=== PATIENT | female | born 1985 | race Caucasian/White ===

== ENCOUNTER 2020-09-19 12:02 | Inpatient (IN) ==
[2020-09-19] MEDS ORDERED: miSOPROStoL 50 MCG TAB PO ONE (13:01)
[2020-09-19] MEDS ORDERED: OXYTOCIN 30 UNITS/500 ML BAG IV PRN (13:01)
[2020-09-19 13:20] LABS: Hematocrit (blood only) 34.8 % (37-47); Hemoglobin 12.1 g/dL (12.0-16.0); Mean Corpuscular Hemoglobin 32.4 pg (25-34); Mean Corpuscular Hgb Conc 34.8 g/dL (32-36); Mean Platelet Volume 10.6 fL (7.4-10.4); Platelet Count 214 K/uL (130-400); RDW Coefficient of Variation 13.9 % (11.5-14.5); Red Blood Count 3.74 M/uL (4.2-5.4); White Blood Count 10.33 K/uL (4.8-10.8)
--- NOTE | 2020-09-19 13:23 | History & Physical Report ---
Date of Service September 19, 2020 Assessment & Plan (1) Post-dates : 35-year-old -0-0-2 at 40 weeks and 6 days of gestation, scheduled induction of labor for postdates, Vital signs stable afebrile, heart rate reassuring, Cervix unfavorable, Plan to admit, monitor, labs and cervical ripening Patient desires to ambulate during induction process Discussed what to expect from induction All questions were answered. Admission and Anticipated Discharge Date Admission Date: September 19, 2020 History of Present Illness Primary Care Provider: NO PCP Patient is a 35-year-old -0-0-2 at 40 weeks and 6 days of gestation who is here today for scheduled induction of labor for postdates. She has no complaints. She denies contractions, leakage of fluid, vaginal bleeding. She reports good movements. Her has been uncomplicated except GBS positive and AMA. She declined genetic testing. Allergies Allergy/AdvReac Type Severity Reaction Status Date / Time No Known Allergies Allergy Unverified 03/06/18 08:11 Home Medications Medication Instructions Recorded Confirmed Type vit-iron fum-folic ac 1 tab PO DAILY 03/06/18 03/06/18 History [ Vitamin] ibuprofen 600 mg PO Q6H PRN #30 tab 03/08/18 Rx Patient History Medical History (Updated 09/19/20 @ 13:21 by Deepti Brandt MD) and not yet delivered in third trimester Surgical History History of ear surgery History of placement of ear tubes [place] teeth extracted Social History Smoking Status: Never smoker Hx Alcohol Use: No Hx Substance Use: No Preferred Language: Greenlandic Communication Ability: Effective Beliefs That Will Affect Care: None marital status: Current Living Situation: Spouse and Family Feels Safe at Home: Yes Assistive Devices: None OB History 2 FT [employer] History Denies any history of STD weeks including chlamydia, gonorrhea, herpes. Review of Systems All systems reviewed & are unremarkable except as noted in HPI & below Physical Exam Constitutional: WD/WN, vitals as above well developed and well nourished Comfortable laying in bed, not in acute distress Gastrointestinal (Abdomen): normal bowel sounds, soft, nontender, no hepatosplenomegaly (Gravid, Ant 7 to 8 pounds) Genitourinary: + external erythema (Vulvar erythema) OB Exam Abdomen: + vertex Manual OB Exam: + cervical dilation 2 cm, + cervical effacement 40% and + station high OB Exam Monitor Tracing: + external uterine monitor used and + category I Results & Data ([facility]) Vital Signs (Past 12 Hours) Vital Signs Temp Pulse Resp BP 09/19/20 13:05 36.6 C 112 H 20 126/78
[2020-09-19] MEDS ORDERED: PENICILLIN G POTASSIUM 6 MU in DEXTROSE 5% 250 ML IV ONE (14:00)
[2020-09-19] MEDS ORDERED: CALCIUM CARBONATE 500 MG CHEWABLE TAB PO PRN (14:29)
[2020-09-19] MEDS ORDERED: BUTORPHANOL TARTRATE 1 MG/ML VIAL IV PRN (14:42)
--- NOTE | 2020-09-19 16:26 | Obstetrical Progress Note ---
Date of Service September 19, 2020 Assessment & Plan Admission and Anticipated Discharge Date Admission Date: September 19, 2020 Subjective Patient is reevaluated She received 1st dose of Cytotec No ctxs/ LOF/VB/ pain Was taking a nap FHR categ I Desires to eat dinner Plan to let her eat dinner and then continue with induction Results & Data ([facility]) Vital Signs (Past 12 Hours) Vital Signs Temp Pulse Resp BP 09/19/20 13:09 36.6 C 20 09/19/20 13:05 36.6 C 112 H 20 126/78
[2020-09-19] MEDS: PENICILLIN G POTASSIUM 3 MU in DEXTROSE 5% 100 ML IV PRN ×2 (18:42→22:27)
[2020-09-19] MEDS: miSOPROStoL 50 MCG TAB PO SCH (19:50)
--- NOTE | 2020-09-19 23:27 | Obstetrical Progress Note ---
Date of Service September 19, 2020 Assessment & Plan Admission and Anticipated Discharge Date Admission Date: September 19, 2020 Subjective Patient is reevaluated. She has been feeling contractions for the last hour or so and they are getting painful. She rates them 8 out of 10 and every 5 to 6 minutes. She desires epidural for pain. Vital signs stable afebrile, heart rate reassuring, Received 3 doses of penicillin, and 2 doses of p.o. Cytotec Cervix is 3 to 4 cm dilated, 70%, -2 Continue to monitor closely, Epidural for pain. Results & Data ([facility]) Vital Signs (Past 12 Hours) Vital Signs Temp Pulse Resp BP 09/19/20 22:16 36.8 C 77 16 99/57 L 09/19/20 19:11 36.8 C 94 H 18 117/60 09/19/20 18:35 36.6 C 78 20 111/66 09/19/20 13:09 36.6 C 20 09/19/20 13:05 36.6 C 112 H 20 126/78
[2020-09-19] MEDS: LACTATED RINGER'S 1,000 ML IV PRN (23:32)
[2020-09-19] MEDS ORDERED: BUPIVACAINE 0.25% 30 ML VIAL ONE (23:34)
[2020-09-19] MEDS ORDERED: ePHEDrine sulfate 50 MG/ML AMP ONE (23:34)
[2020-09-19] MEDS ORDERED: SODIUM CHLORIDE 0.9% INJ 10 ML VIAL ONE (23:34)
[2020-09-19] MEDS ORDERED: fentaNYL citrate 100 MCG/2 ML VIAL ONE (23:35)
[2020-09-19] MEDS ORDERED: fentaNYL 2MCG/ML ROPIVACAINE 1.25MG/ML 100 ML BAG EPI ONE (23:35)
--- NOTE | 2020-09-19 23:51 | Anesthesiology Consultation ---
Date of Service September 19, 2020 Assessment & Plan (1) Encounter for pre-operative examination: Chart Review Chart Review: Acceptable Risk for Labor Epidural Consults Requested none ASA ASA2 Proposed Anesthesia Anesthesia Type: Labor Epidural Risk / Benefits Reviewed With: PT / POA / Parent / Guardian, Accepts Plan and Informed Consent Obtained History Height/Weight Height: 5 ft 2 in Weight: 80.739 kg Allergies Allergy/AdvReac Type Severity Reaction Status Date / Time No Known Allergies Allergy Verified 09/19/20 13:32 Medications Home Medications Medication Instructions Recorded Confirmed Last Taken Vitamin 1 tab PO DAILY 03/06/18 09/19/20 09/18/20 19:00 Active Medications Generic Name Dose Route Start Last Admin Trade Name Freq PRN Reason Stop Dose Admin Penicillin G Potassium 3 mu/ 106 mls @ 100 mls/hr 09/19/20 13:01 09/19/20 22:27 Dextrose IV 09/29/20 13:00 100 mls/hr Q4H PRN Administration Give until delivery Lactated Ringer's 1,000 mls @ 150 mls/hr 09/19/20 13:01 09/19/20 23:32 Lr IV 09/21/20 13:00 999 mls/hr .[id number] PRN Administration L&D Protocol Protocol Misoprostol 50 mcg 09/19/20 18:20 09/19/20 19:50 Misoprostol 50 Mcg Tab PO 10/19/20 18:19 50 mcg Q4H AVILA Administration Past Medical History Medical History and not yet delivered in third trimester Exercise / Class Metabolic Activity II 4-5 Yardwork/Stairs/Walk up hill Past Surgical History Surgical History History of ear surgery History of placement of ear tubes [place] teeth extracted Past Anesthesia History No Hx of Anesthesia Complications and No Family Hx of Anesthesia Complications History of PONV No Hx of PONV and No Hx of Motion Sickness Social History Smoking Status: Never smoker Hx Alcohol Use: No Hx Substance Use: No Physical Exam Vital Signs Last Vital Signs Temp 98.2 F 09/19/20 22:16 Pulse 77 09/19/20 22:16 Resp 16 09/19/20 22:16 BP 99/57 L 09/19/20 22:16 ENMT Mouth: no dentition abnormality Thyromental Distance: > or= 3.5 Finger Breadths Mallampati Class: II Neck normal visual inspection Respiratory normal respiratory effort Auscultation: lungs clear to auscultation bilaterally Cardiovascular Rate/Rhythm: regular rate and regular rhythm Testing Laboratory Results 09/19/20 13:08
[2020-09-20] MEDS ORDERED: ONDANSETRON INJ 2 MG/ML 2 ML VIAL IV PRN (00:10)
[2020-09-20] MEDS ORDERED: NALBUPHINE HCL INJ 10 MG/ML AMP IV PRN (00:10)
[2020-09-20] MEDS ORDERED: NALOXONE HCL 0.4 MG/1 ML VIAL/CARP IV PRN (00:10)
[2020-09-20] MEDS ORDERED: ePHEDrine sulfate 50 MG/ML AMP IV PRN (00:10)
[2020-09-20] MEDS ORDERED: diphenhydrAMINE 50 MG/ML VIAL IV PRN (00:10)
[2020-09-20] MEDS ORDERED: NALOXONE HCL 1 MG in SODIUM CHLORIDE 0.9% 1000ML 1,000 ML IV PRN (00:10)
[2020-09-20] MEDS ORDERED: fentaNYL 2MCG/ML ROPIVACAINE 1.25MG/ML 100 ML BAG EPI PRN (00:10)
[2020-09-20] MEDS ORDERED: OXYTOCIN 30 UNITS/500 ML BAG IV PRN ×2 (00:13→04:57)
[2020-09-20] MEDS: LACTATED RINGER'S 1,000 ML IV PRN (00:23)
[2020-09-20] MEDS: miSOPROStoL 50 MCG TAB PO SCH (00:28)
[2020-09-20] MEDS: PENICILLIN G POTASSIUM 3 MU in DEXTROSE 5% 100 ML IV PRN (02:18)
[2020-09-20] MEDS ORDERED: SUPERCREAM 0.870% 15 GM JAR EXT PRN (04:57)
[2020-09-20] MEDS ORDERED: HYDROCORTISONE ACETATE 25 MG SUPP PR PRN (04:57)
[2020-09-20] MEDS ORDERED: DIPHTHERIA/TETANUS/PERTUSSIS 0.5 ML SYR/VIAL IM ONE (04:57)
[2020-09-20] MEDS ORDERED: BENZOCAINE 20% AER SPR 82.5 GM CAN EXT PRN (04:57)
[2020-09-20] MEDS ORDERED: ACETAMINOPHEN 325 MG TAB PO PRN (04:57)
[2020-09-20] MEDS ORDERED: MEASLES, MUMPS & RUBELLA VIRUS VIAL SQ ONE (04:57)
--- NOTE | 2020-09-20 06:18 | Delivery Summary ---
DATE OF DELIVERY: 09/20/2020 TIME: 4:31 a.m. DETAILS OF DELIVERY: The patient was found to be fully dilated and desired to push. She pushed through one contraction and delivered the head without difficulty. Shoulders were delivered with minimal traction. Baby was handed off to the mother where mouth and nose were suctioned. Cord was clamped x2 and cut at 1-minute delay. Baby was vigorously crying and moving. The cord blood was obtained. Vagina and perineum were checked for lacerations, there was a small second degree at 7 o'clock position. It was repaired with 0 Vicryl in a running locked fashion, skin in a subcuticular fashion. Excellent hemostasis was achieved. The rest of the vagina and perineum were intact. Placenta was found to be in the vagina, delivered spontaneously as intact and complete. Uterus was explored and found to be empty. Lower segment was cleared of all clots and debris. Fundus was firm. EBL was 200 mL. IV Pitocin was infused. Mom and baby tolerated the procedure well. Sponge, lap, and needle count was correct x2. The baby was a viable female , Apgars 9/9, weight is 3529 gr. No complications happened and I was present during the whole procedure. Job ID: [id number] [facility]
--- NOTE | 2020-09-20 08:13 | Anesthesia Procedure Note ---
Date of Service September 20, 2020 Anesthesia Post Epidural Note Vital Signs Vital Signs: Temp Pulse Resp BP Pulse Ox 36.7 C 92 H 20 115/75 98 09/20/20 04:08 09/20/20 07:35 09/20/20 07:40 09/20/20 07:35 09/20/20 04:49 Pain Intensity Abdomen: Pain Intensity: 0 Notes Mental Status: alert / awake / arousable and participated in evaluation Patient Amnestic to Procedure: Yes Nausea / Vomiting: adequately controlled Pain: adequately controlled Airway Patency, RR, SpO2: stable & adequate BP & HR: stable & adequate Hydration State: stable & adequate Anesthetic Complications: no major complications apparent and Pt Satisfied with anesthetic care
[2020-09-20] MEDS: PRENATAL VITAMIN 1 TAB PO SCH (08:14)
[2020-09-20] MEDS: DOCUSATE SODIUM 100 MG CAP PO SCH ×2 (08:14→20:58)
[2020-09-20] MEDS: FERROUS SULFATE 325 MG TAB PO SCH (08:14)
[2020-09-20] MEDS: IBUPROFEN 600 MG TAB PO PRN ×3 (11:46→20:58)
[2020-09-21 06:51] LABS: Hematocrit (blood only) 31.5 % (37-47); Hemoglobin 10.5 g/dL (12.0-16.0); Mean Corpuscular Hemoglobin 31.3 pg (25-34); Mean Corpuscular Hgb Conc 33.3 g/dL (32-36); Mean Platelet Volume 10.2 fL (7.4-10.4); Platelet Count 199 K/uL (130-400); RDW Coefficient of Variation 14.3 % (11.5-14.5); RDW Standard Deviation 48.9 fL (36.4-46.3); Red Blood Count 3.35 M/uL (4.2-5.4); White Blood Count 10.34 K/uL (4.8-10.8)
--- NOTE | 2020-09-21 07:59 | Obstetrical Progress Note ---
Date of Service September 21, 2020 Assessment & Plan Admission and Anticipated Discharge Date Admission Date: September 19, 2020 Subjective Patient is seen and examined. She feels well, no complaints. Desires d/c today Ambulating without dizziness Voiding without difficulty Tolerating regular diet with out N&V Bleeding is minimal No fever/ chills/ CP/ SOB/ N&V/ Leg pain Breast feeding without problems Vital Signs Temp Pulse Resp BP Pulse Ox 09/21/20 07:33 36.7 C 82 16 109/73 09/21/20 04:20 36.5 C 82 16 111/73 98 09/20/20 23:15 36.8 C 76 17 115/72 98 Lab Results 09/19/20 09/19/20 09/19/20 Range/Units 13:08 13:53 13:53 WBC 10.33 (4.8-10.8) K/uL RBC 3.74 L (4.2-5.4) M/uL Hgb 12.1 (12.0-16.0) g/dL Hct 34.8 L (37-47) % MCV 93.0 (80-100) fL MCH 32.4 (25-34) pg MCHC 34.8 (32-36) g/dL RDW Std Deviation 47.0 H (36.4-46.3) fL RDW Coeff of Armaan 13.9 (11.5-14.5) % Plt Count 214 (130-400) K/uL MPV 10.6 H (7.4-10.4) fL COVID-19 Eval Order Covid19 IDNow atMMIC SARS-CoV-2, RNA, NAAT NEGATIVE (NEGATIVE) 09/21/20 Range/Units 06:33 WBC 10.34 (4.8-10.8) K/uL RBC 3.35 L (4.2-5.4) M/uL Hgb 10.5 L (12.0-16.0) g/dL Hct 31.5 L (37-47) % MCV 94.0 (80-100) fL MCH 31.3 (25-34) pg MCHC 33.3 (32-36) g/dL RDW Std Deviation 48.9 H (36.4-46.3) fL RDW Coeff of Armaan 14.3 (11.5-14.5) % Plt Count 199 (130-400) K/uL MPV 10.2 (7.4-10.4) fL COVID-19 Eval Order SARS-CoV-2, RNA, NAAT (NEGATIVE) PE: General: Alert, orientedx3, NAD Abd: soft, NT, fundus firm, below Umbilicus Perineum intact, Lochia rubra minimal Ext; NT, no edema AP: 35 yo s/p , ppd# 1 VSS Afebrile doing well Continue routine care All questions were answered D/C home , f/u in office Discussed when to call Results & Data ([facility]) Vital Signs (Past 12 Hours) Vital Signs Temp Pulse Resp BP Pulse Ox 09/21/20 04:20 36.5 C 82 16 111/73 98 09/20/20 23:15 36.8 C 76 17 115/72 98
[2020-09-21] MEDS: IBUPROFEN 600 MG TAB PO PRN (08:43)
[2020-09-21] MEDS: FERROUS SULFATE 325 MG TAB PO SCH (08:43)
[2020-09-21] MEDS: DOCUSATE SODIUM 100 MG CAP PO SCH (08:43)
[2020-09-21] MEDS: PRENATAL VITAMIN 1 TAB PO SCH (08:43)
[2020-09-21] MEDS ORDERED: bisacodyL 5 MG TABEC PO SCH (20:00)
[2020-09-22] MEDS ORDERED: bisacodyL 10 MG SUPP PR PRN (06:00)
== END 2020-09-21 10:43 | disposition home or self-care (01) | DRG 807 ==
LOC: 4S1 12:51 → 4N 09-20 09:26